=== PATIENT | female | born 2000 ===

== ENCOUNTER 2022-06-07 03:57 | Emergency (ER) | payer OTHER ==
[~2022-06-07] VITALS: Ht 154.9 cm; Wt 54.4 kg
== END 2022-06-07 05:18 | disposition home or self-care (01) ==
LOC: ER 03:57
DX: S09.90XA Unspecified injury of head, initial encounter (principal); V43.52XA Car driver injured in collision with other type car in traffic accident, initial encounter
CPT/HCPCS: 99283; A9270